=== PATIENT | male | born 1985 | race Caucasian/White ===

== ENCOUNTER 2022-07-25 18:54 | Emergency (ER) | payer SELFPAY ==
[2022-07-25 19:00] VITALS: BP 113/72; PULSE 70; RESP 18; TEMP 97.7; BMI 25.1
== END 2022-07-25 19:55 | disposition home or self-care (01) ==
LOC: JERFT 18:54
DX: T78.40XA Allergy, unspecified, initial encounter (principal)
CPT/HCPCS: 99281-25